=== PATIENT | female | born 2005 | race Two or more races ===

== ENCOUNTER 2024-08-10 10:50 | Emergency (ER) | payer MEDICAID ==
[~2024-08-10] VITALS: Ht 165.1 cm; Wt 72.0 kg
[2024-08-10 11:09] VITALS: O2SAT 99
[2024-08-10] MEDS ORDERED: ACET-2708 MT (12:10)
[2024-08-10] MEDS ORDERED: PRED5TAB48 MT (12:10)
[2024-08-10 12:12] VITALS: BP 108/59; PULSE 87; RESP 16; TEMP 36.83628; O2SAT 99
== END 2024-08-10 12:16 | disposition home or self-care (01) ==
LOC: ER 10:50
DX: B34.9 Viral infection, unspecified (principal)
CPT/HCPCS: 99283